=== PATIENT | female | born 1990 | race Caucasian/White ===

== ENCOUNTER 2017-09-27 16:28 | Emergency (ER) | payer MEDICAID ==
[2017-09-27] MEDS ORDERED: ONDANSETRON HCL INJ/PF 4 MG/2 ML SDV IV ONE (17:01)
[2017-09-27] MEDS ORDERED: NORMAL SALINE 1000 ML 1,000 ML IV ONE ×2 (17:01→20:29)
--- NOTE | 2017-09-27 17:02 | ER Document Report ---
ED Medical Screen (RME) - General Chief Complaint: Abdominal Pain Stated Complaint: ABDOMINAL PAIN Time Seen by Provider: 09/27/17 16:55 Information source: Patient, Parent - mother TRAVEL OUTSIDE OF THE [place] IN LAST 30 DAYS: No - HPI Notes: 09/27/17 17:03 27-year-old female 25 weeks 2 para 1, presents emergency department with pain in urination, abdominal pain, vomiting. She states she has been sick since Friday originally she thought it was food poisoning. She states however she is not getting any better. She did call her PHOTOGRAPHIC PRESS SCREWMAKER and they thought she may have the flu so they told her not to come in the office. Patient states she has not been able to keep anything down the last 2 days. She has a history of depression she is on Effexor however she has not taken it in a few days because she is afraid on her make her vomit. She has felt the baby move today. No vaginal bleeding or abnormal vaginal discharge. 09/27/17 17:03 - Related Data Allergies/Adverse Reactions: No Known Allergies Allergy (Verified 09/27/17 16:32) Past Medical History - Social History Chew tobacco use (# tins/day): No Frequency of alcohol use: None Drug Abuse: None Renal/ Medical History: Denies: Hx Peritoneal Dialysis GI Medical History: Reports: Hx Gastroesophageal Reflux Disease - w/preg Psychiatric Medical History: Reports: Hx Depression Physical Exam - Vital signs Vitals: Temp Pulse Resp BP Pulse Ox 98.1 F 117 H 16 128/66 H 98 09/27/17 16:40 09/27/17 16:40 09/27/17 16:40 09/27/17 16:40 09/27/17 16:40 Course - Vital Signs Vital signs: Temp Pulse Resp BP Pulse Ox 98.1 F 117 H 16 128/66 H 98 09/27/17 16:40 09/27/17 16:40 09/27/17 16:40 09/27/17 16:40 09/27/17 16:40
[2017-09-27 17:21] LABS: ABSOLUTE LYMPHOCYTES (AUTO) 1.3 10^3/uL (0.5-4.7); ABSOLUTE MONOCYTES (AUTO) 0.9 10^3/uL (0.1-1.4); ABSOLUTE NEUT (AUTO) 11.3 10^3/uL (1.7-8.2); BASOPHILS % (AUTO) 0.2 % (0-2); EOSINOPHILS % (AUTO) 0.1 % (0-6); HEMATOCRIT 39.7 % (36.0-47.0); HEMOGLOBIN 13.6 g/dL (12.0-15.5); LYMPHOCYTES % (AUTO) 9.4 % (13-45); MEAN CORPUSCULAR HEMOGLOBIN 28.7 pg (27.0-33.4); MEAN CORPUSCULAR HGB CONC 34.1 g/dL (32.0-36.0); MEAN CORPUSCULAR VOLUME 84 fl (80-97); MONOCYTES % (AUTO) 6.4 % (3-13); PLATELET COUNT 291 10^3/uL (150-450); RED BLOOD COUNT 4.73 10^6/uL (3.72-5.28); RED CELL DISTRIBUTION WIDTH 13.5 % (11.5-14.0); SEGMENTED NEUTROPHILS % (AUTO) 83.9 % (42-78); TOTAL CELLS COUNTED % (AUTO) 100 %; WHITE BLOOD COUNT 13.4 10^3/uL (4.0-10.5)
[2017-09-27 17:27] LABS: APPEARANCE,URINE SLIGHTLY-CLOUDY; BILIRUBIN,URINE NEGATIVE (NEGATIVE); COLOR,URINE YELLOW; GLUCOSE, URINE NEGATIVE (NEGATIVE); KETONES,URINE 80 mg/dL (NEGATIVE); LEUKOCYTE ESTERASE,URINE NEGATIVE (NEGATIVE); NITRITE,URINE NEGATIVE (NEGATIVE); PROTEIN,URINE 30 mg/dL (NEGATIVE); URINE SPECIFIC GRAVITY 1.029
[2017-09-27 19:41] LABS: ALANINE AMINOTRANSFERASE 23 U/L (9-52); ALBUMIN 2.8 g/dL (3.5-5.0); ALKALINE PHOSPHATASE 63 U/L (38-126); ANION GAP 7 (5-19); ASPARTATE AMINO TRANSFERASE 19 U/L (14-36); BILIRUBIN,DIRECT 0.3 mg/dL (0.0-0.4); BILIRUBIN,TOTAL 0.4 mg/dL (0.2-1.3); BLOOD UREA NITROGEN 10 mg/dL (7-20); CALCIUM 8.2 mg/dL (8.4-10.2); CARBON DIOXIDE 23 mmol/L (22-30); CHLORIDE 107 mmol/L (98-107); GLUCOSE 77 mg/dL (75-110); POTASSIUM 3.6 mmol/L (3.6-5.0); SODIUM 136.6 mmol/L (137-145); TOTAL PROTEIN 5.3 g/dL (6.3-8.2)
[2017-09-27] MEDS ORDERED: FAMOTIDINE 20 MG TABLET PO ONE (20:09)
[2017-09-27] MEDS ORDERED: METOCLOPRAMIDE HCL ORAL SOLN 10 MG/10 ML UDCUP PO ONE (20:10)
[2017-09-27] MEDS ORDERED: LIDOCAINE 2% VISCOUS SOLN 20 ML UDCUP PO ONE (20:10)
--- NOTE | 2017-09-27 20:27 | ER Document Report ---
ED General - General Chief Complaint: Abdominal Pain Stated Complaint: ABDOMINAL PAIN Time Seen by Provider: 09/27/17 16:55 Notes: Patient is a 27-year-old female currently 25 weeks who presents with 24 hours of intermittent epigastric abdominal pain and vomiting. No surgical history. No chronic medical problems other than depression. Describes the pain as a severe, stabbing, intermittent pain that is prompted by eating and then spontaneously resolves. She notes associated vomiting when she tries to eat. She has been trying the nausea medications that have been prescribed by her TENNIS COACH without improvement of her symptoms. She notes a history of gastroesophageal reflux but denies ever having symptoms to this degree of severity. She denies any vaginal bleeding, vaginal discharge, or lower abdominal pain. Continues to feel active movement. She notes that she had one episode of urination today and that the urine was "thick" and was very painful when past. She denies any flank tenderness. She has not had a recorded fever at home. TRAVEL OUTSIDE OF THE [place] IN LAST 30 DAYS: No - Related Data Allergies/Adverse Reactions: No Known Allergies Allergy (Verified 09/27/17 16:32) Past Medical History - General Information source: Patient, Parent - mother - Social History Smoking Status: Never Smoker Chew tobacco use (# tins/day): No Frequency of alcohol use: None Drug Abuse: None Lives with: Spouse/Significant other Family History: Reviewed & Not Pertinent Patient has suicidal ideation: No Patient has homicidal ideation: No Renal/ Medical History: Denies: Hx Peritoneal Dialysis GI Medical History: Reports: Hx Gastroesophageal Reflux Disease - w/preg Psychiatric Medical History: Reports: Hx Depression Review of Systems - Review of Systems Notes: Constitutional: Negative for fever. HENT: Negative for sore throat. Eyes: Negative for visual changes. Cardiovascular: Negative for chest pain. Respiratory: Negative for shortness of breath. Gastrointestinal: Positive for abdominal pain and vomiting Genitourinary: Positive for dysuria. Musculoskeletal: Negative for back pain. Skin: Negative for rash. Neurological: Negative for headaches, weakness or numbness. 10 point ROS negative except as marked above and in HPI. Physical Exam - Vital signs Vitals: Temp Pulse Resp BP Pulse Ox 98.1 F 117 H 16 128/66 H 98 09/27/17 16:40 09/27/17 16:40 09/27/17 16:40 09/27/17 16:40 09/27/17 16:40 Interpretation: Tachycardic Notes: PHYSICAL EXAMINATION: GENERAL: Well-appearing, well-nourished and in no acute distress. HEAD: Atraumatic, normocephalic. EYES: Pupils equal round and reactive to light, extraocular movements intact, sclera anicteric, conjunctiva are normal. ENT: nares patent, oropharynx clear without exudates. Moderately dry mucous membranes. NECK: Normal range of motion, supple without lymphadenopathy LUNGS: Breath sounds clear to auscultation bilaterally and equal. No wheezes rales or rhonchi. HEART: Regular tachycardia without murmurs ABDOMEN: Soft, gravid uterus, nontender, normoactive bowel sounds. No guarding , no rebound. No masses appreciated. EXTREMITIES: Normal range of motion, no pitting or edema. No cyanosis. NEUROLOGICAL: No focal neurological deficits. Moves all extremities spontaneously and on command. PSYCH: Normal mood, normal affect. SKIN: Warm, Dry, normal turgor, no rashes or lesions noted. Course - Re-evaluation Re-evalutation: 09/27/17 20:21 Presentation of an otherwise well-appearing 27-year-old female currently 25 weeks with upper abdominal pain with eating. On examination, patient denies any pain at this time. She has no localized abdominal tenderness on examination. No vaginal bleeding or discharge. Bedside ultrasound shows a viable intrauterine , appropriate cardiac activity and active movement. Patient does note one episode of dysuria but urinalysis is not consistent with an acute urinary tract infection. The patient does not have any focal right lower quadrant tenderness, rebound or guarding to suggest acute appendicitis. No right upper quadrant tenderness to suggest cholestasis of or an acute cholecystitis. Bedside ultrasound does not demonstrate any evidence of stones, wall thickening or pericholecystic fluid. LFTs are within normal limits. Suspect likely gastric irritation given clinical history and other diagnoses that are appear to be effectively excluded at this point. Patient has tolerated oral intake here in the emergency department without difficulty. Vitals are within normal limits. At this time will discharge with return precautions and follow-up recommendations. Verbal discharge instructions given a the bedside and opportunity for questions given. Medication warnings reviewed. Patient is in agreement with this plan and has verbalized understanding of return precautions and the need for primary care follow-up in the next 24-72 hours. - Vital Signs Vital signs: Temp Pulse Resp BP Pulse Ox 98.9 F 98 16 121/63 100 09/27/17 21:00 09/27/17 21:22 09/27/17 21:00 09/27/17 21:00 09/27/17 21:00 - Laboratory Result Diagrams: 09/27/17 17:15 09/27/17 19:00 Laboratory results interpreted by me: 09/27/17 09/27/17 09/27/17 17:15 17:15 19:00 WBC 13.4 H Seg Neutrophils % 83.9 H Lymphocytes % 9.4 L Absolute Neutrophils 11.3 H Sodium 136.6 L Creatinine 0.50 L Calcium 8.2 L Total Protein 5.3 L Albumin 2.8 L Urine Protein 30 H Urine Ketones 80 H Urine Urobilinogen 4.0 H Discharge - Discharge Clinical Impression: Epigastric abdominal pain Abdominal pain during Qualifiers: Trimester: second trimester Qualified Code(s): O26.892 - Other specified related conditions, second trimester Condition: Good Disposition: HOME, SELF-CARE Additional Instructions: Your symptoms appear to be most consistent with stomach or upper intestinal irritation. This is often worsened in the context of an advanced . Please begin taking famotidine 40 mg in the morning and 40 mg at night. This medicine can be purchased directly [id number]. You may also take medicine such as Tums to assist with your pain. Please return to emergency department immediately if you have worsening of your pain, shortness of breath, vomiting, become unable to exert yourself due to pain or difficulty breathing, you pass out, or have any pain that radiates into your arms, jaw, or back. Please also return if you have any additional symptoms that are concerning to you. Referrals: DARLEEN BHATT MD [Primary Care Provider] - Follow up as needed
[2017-09-27 21:11] VITALS: BP 121/63
== END 2017-09-27 21:35 | disposition home or self-care (01) ==
LOC: ER 16:28
DX: O26.892 Other specified pregnancy related conditions, second trimester (principal); R10.13 Epigastric pain; Z3A.25 25 weeks gestation of pregnancy
CPT/HCPCS: 99284; 96361; 96374; 36415; 87086; 85025; 80053; 81001; J3490 ×3; J2405; J7030

== ENCOUNTER 2017-12-18 17:13 | Inpatient (IN) | payer MEDICAID ==
[2017-12-18] MEDS ORDERED: RINGERS SOLUTION,LACTATED 1,000 ML IV ONE (17:21)
--- NOTE | 2017-12-18 17:40 | Admission Physical ---
Datetime Report Generated by CPN: 12/18/2017 17:39 CURRENT ADMISSION Hx Assessment: The History has been Reviewed and is Current Chief Complaint: Uterine Contractions; Suspected Ruptured Membranes Indication for Induction: Not Applicable Admit Impression : Term, Intrauterine ; Ruptured Membranes Admit Plan: Admit to Unit; Initiate Labor Protocol ALLERGIES Medication Allergies: No Known Allergies (09/27/2017) OBSTETRICAL HISTORY EDC: 01/05/2018 00:00 : 2 Para: 1 PHYSICAL EXAM General: Normal HEENT: Normal Neurologic: Deferred Thyroid: Normal Heart: Normal Lungs: Normal Breast: Normal Back: Normal Abdomen: Normal Genitourinary Exam: Normal Extremities: Normal DTRs: Normal Pelvic Type: Adequate Physical Exam Comments: 6 lbs 8 oz proven pelvis Vital Signs: Reviewed VAGINAL EXAM Dilatation: 1 Effacement: 30 Station: -4 Contraction Comments: 2-5 MEMBRANES Membranes: Ruptured Amniotic Fluid Color: Clear FETUS A EGA: 37.3 Monitoring: External US FHR- Baseline: 135 Variability: Moderate 6-25bpm Accelerations: 15X15 Decelerations: None FHR Category: Category I Estimated Weight (gm): 3200 Presentation: Vertex Admit Comment: c/o rupture of membranes, states about an hour ago, active baby, irregular mild ctx, denies bleeding; complicated by polyhdramnios. Hx abn pap with colpo/leep? Depression on lexapro Grossly ruptured GBS neg Pitocin prn Anticipate INFORMED CONSENT Assignment: Ava Grey MD Signature: with User ID: [email or web address] : with User ID: [email or web address]
[2017-12-18] MEDS ORDERED: ONDANSETRON HCL INJ/PF 4 MG/2 ML SDV IV ONE (17:47)
[2017-12-18] MEDS ORDERED: CITRIC ACID/SODIUM CITRATE ORAL SOLN 15 ML UDCUP PO ONE (17:47)
[2017-12-18 18:21] LABS: ABSOLUTE BASOPHILS # (AUTO) 0.1 10^3/uL (0.0-0.2); ABSOLUTE LYMPHOCYTES (AUTO) 2.6 10^3/uL (0.5-4.7); ABSOLUTE MONOCYTES (AUTO) 1.3 10^3/uL (0.1-1.4); ABSOLUTE NEUT (AUTO) 10.6 10^3/uL (1.7-8.2); BASOPHILS % (AUTO) 0.5 % (0-2); EOSINOPHILS % (AUTO) 0.1 % (0-6); HEMATOCRIT 35.8 % (36.0-47.0); HEMOGLOBIN 11.7 g/dL (12.0-15.5); MEAN CORPUSCULAR HEMOGLOBIN 24.8 pg (27.0-33.4); MEAN CORPUSCULAR HGB CONC 32.6 g/dL (32.0-36.0); MEAN CORPUSCULAR VOLUME 76 fl (80-97); MONOCYTES % (AUTO) 8.7 % (3-13); PLATELET COUNT 196 10^3/uL (150-450); RED BLOOD COUNT 4.69 10^6/uL (3.72-5.28); RED CELL DISTRIBUTION WIDTH 18.3 % (11.5-14.0); SEGMENTED NEUTROPHILS % (AUTO) 72.7 % (42-78); TOTAL CELLS COUNTED % (AUTO) 100 %; WHITE BLOOD COUNT 14.6 10^3/uL (4.0-10.5)
[2017-12-18] MEDS ORDERED: CITRIC ACID/SODIUM CITRATE ORAL SOLN 15 ML UDCUP ONE (18:26)
[2017-12-18 18:46] LABS: ALANINE AMINOTRANSFERASE 21 U/L (9-52); ALBUMIN 2.7 g/dL (3.5-5.0); ALKALINE PHOSPHATASE 143 U/L (38-126); ANION GAP 11 (5-19); ASPARTATE AMINO TRANSFERASE 18 U/L (14-36); BLOOD UREA NITROGEN 14 mg/dL (7-20); CARBON DIOXIDE 21 mmol/L (22-30); CHLORIDE 107 mmol/L (98-107); GLUCOSE 107 mg/dL (75-110); LDH 423 U/L (313-618); POTASSIUM 4.2 mmol/L (3.6-5.0); SODIUM 138.7 mmol/L (137-145); TOTAL PROTEIN 5.5 g/dL (6.3-8.2); URIC ACID 5.6 mg/dL (2.5-6.2)
[2017-12-18 19:15] LABS: BILIRUBIN,TOTAL < 0.1 mg/dL (0.2-1.3); RUBELLA INTERPRETATION POSITIVE
[2017-12-18] MEDS ORDERED: MISOPROSTOL 0.2 MG TABLET ONE (23:13)
[2017-12-18] MEDS ORDERED: OXYTOCIN/NORMAL SALINE 20 UNIT/1,000 ML RTUINJ ONE (23:13)
[2017-12-18] MEDS ORDERED: LIDOCAINE 1% INJ-PF (10 MG/ML) 30 ML SDV ONE (23:13)
[2017-12-18] MEDS: OXYTOCIN/NORMAL SALINE 20 UNIT/1,000 ML RTUINJ IV PRN (23:24)
--- NOTE | 2017-12-19 00:34 | L&D Progress Notes ---
PROGRESS NOTES Datetime Report Generated by CPN: 12/19/2017 00:34 PROGRESS NOTE Impression: Reassuring Heart Rate Procedures: Sterile Vag Exam Plan: Continue Present Management; Induction Informed Consent Obtained: Vaginal Delivery; Induction of Labor; Risks, Benefits and Alternatives Discussed Vital Signs : Reviewed Comment: Pt admitted for PROM. Initially refused pitocin. We reviewed with patient that need to get labor initiated and with polyhydramnios that ctx may not initiate on own. Pt is only rarely alex. She refuses the Cooks catheter. Pitocin initiated. Pt desires to remain mobile. VAGINAL EXAM Dilatation: 1 Effacement: 30 Station: -4 Contractions: 2-5 MEMBRANES Membranes: Ruptured Amniotic Fluid Color: Clear FETUS A FHR - Baseline: 125 Monitoring: External US Variability: Moderate 6-25bpm Accelerations: 15X15 Decelerations: None Estimated Weight (gm): 3200 Presentation: Vertex SIGNATURE SIGNATURE: [id number] SIGNATURE: [id number] Signature: with User ID: [email or web address]
[2017-12-19] MEDS ORDERED: NALBUPHINE HCL INJ 10 MG/1 ML AMPULE ONE ×3 (03:26→15:34)
[2017-12-19] MEDS ORDERED: NALBUPHINE HCL INJ 10 MG/1 ML AMPULE INJ ONE ×2 (03:26→11:25)
--- NOTE | 2017-12-19 04:03 | L&D Progress Notes ---
PROGRESS NOTES Datetime Report Generated by CPN: 12/19/2017 04:03 PROGRESS NOTE Impression: Reassuring Heart Rate Impression: Reassuring Heart Rate Procedures: Sterile Vag Exam Plan: Continue Present Management; Induction; Cervical Ripening Plan: Induction; Cervical Ripening Informed Consent Obtained: Vaginal Delivery; Induction of Labor; Risks, Benefits and Alternatives Discussed Informed Consent Obtained: Vaginal Delivery; Induction of Labor; Risks, Benefits and Alternatives Discussed Vital Signs : Reviewed Vital Signs : Reviewed Comment: Long discussion with patient that now approaching 12 hours of membrane rupture and not in labor despite pitocin. Pt has been refusing Cooks catheter until this point. Pt still afebrile and no tachycardia. Reviewed risks of section if not in labor and after 18 hours ruptured and reviewed risks of chorioamnionitis to baby and mom. Reviewed recommendations again re: cooks catheter and benefits of cooks catheter. She desires to proceed with cooks at this time. Nubain given and Cooks catheter placed. VAGINAL EXAM Dilatation: 2 Effacement: 75 Station: -1 Contractions: q 2-4 MEMBRANES Membranes: Ruptured Amniotic Fluid Color: Clear FETUS A FHR - Baseline: 125 Monitoring: External US Variability: Moderate 6-25bpm Decelerations: None FHR Category: Category I FETUS C SIGNATURE: [id number] Signature: with User ID: [email or web address]
[2017-12-19] MEDS ORDERED: ESCITALOPRAM OXALATE 10 MG TABLET PO SCH (05:00)
[2017-12-19] MEDS ORDERED: ESCITALOPRAM OXALATE 10 MG TABLET PO ONE (05:00)
[2017-12-19] MEDS ORDERED: CITRIC ACID/SODIUM CITRATE ORAL SOLN 15 ML UDCUP ONE (05:10)
[2017-12-19] MEDS ORDERED: PROMETHAZINE HCL INJ 25 MG/1 ML VIAL ONE ×2 (11:05→15:34)
[2017-12-19] MEDS ORDERED: PROMETHAZINE HCL INJ 25 MG/1 ML VIAL IV ONE (11:25)
[2017-12-19] MEDS: OXYTOCIN/NORMAL SALINE 20 UNIT/1,000 ML RTUINJ IV PRN (16:09)
[2017-12-19] MEDS ORDERED: PROMETHAZINE HCL INJ 25 MG/1 ML VIAL IV PRN (16:21)
[2017-12-19] MEDS ORDERED: GLYCERIN/WITCH HAZEL LEAF 1 EACH MED..PAD TP PRN (16:21)
[2017-12-19] MEDS ORDERED: OXYTOCIN/NORMAL SALINE 20 UNIT/1,000 ML RTUINJ IV PRN (16:21)
[2017-12-19] MEDS ORDERED: MEASLES,MUMPS&RUBELLA VACC/PF 0.5 ML VIAL SUBCUT PRN (16:21)
[2017-12-19] MEDS ORDERED: BENZOCAINE/MENTHOL AEROSOL SPRAY 56 ML TOP PRN (16:21)
[2017-12-19] MEDS ORDERED: DIPHENHYDRAMINE HCL 25 MG CAPSULE PO PRN (16:21)
[2017-12-19] MEDS ORDERED: ACETAMINOPHEN WITH CODEINE #3 TABLET PO PRN ×2 (16:21)
[2017-12-19] MEDS ORDERED: PROMETHAZINE HCL 25 MG SUPP.RECT PR PRN (16:21)
[2017-12-19] MEDS ORDERED: ACETAMINOPHEN 650 MG SUPP.RECT PR PRN (16:21)
[2017-12-19] MEDS ORDERED: DIBUCAINE 1% OINTMENT 28 GM TP PRN (16:21)
[2017-12-19] MEDS ORDERED: DIPH/PERTUSS(ACELL)/TETANUS VAC/PF 0.5 ML SYR (>=10YO) IM PRN (16:21)
[2017-12-19] MEDS ORDERED: PSEUDOEPHEDRINE HCL 30 MG TABLET PO PRN (16:21)
[2017-12-19] MEDS ORDERED: MAGNESIUM HYDROXIDE SUSP 30 ML UDCUP PO PRN (16:21)
[2017-12-19] MEDS ORDERED: PROMETHAZINE HCL 25 MG TABLET PO PRN (16:21)
[2017-12-19] MEDS ORDERED: NA PHOS,M-B/NA PHOS,DI-BA (ADULT) 133 ML ENEMA PR PRN (16:21)
[2017-12-19] MEDS ORDERED: ZOLPIDEM TARTRATE 5 MG TABLET PO PRN (16:21)
--- NOTE | 2017-12-19 17:32 | Delivery Summary ---
Del Sum A-C Datetime Report Generated by CPN: 12/19/2017 17:31 DELIVERY PERSONNEL DELIVERY PERSONNEL: [id number] Delivery Doctor:: Hal Connelly MD Nurse Nurse Licensed Practical Certified:: Ronda Jason CNM Labor and Delivery Nurse:: Sam Pulido RNstructural engineering drafting officer Nurse:: RIANNA Zheng Nursery Nurse:: ANJALI Sena/DISCHARGE DOOR OPERATOR: Mary Metzger ST Additional Personnel: : RIANNA Gonzalez RN MATERNAL INFORMATION Delivery Anesthesia: Local Medications After Delivery: Pitocin Drip 20 Units/1000ml NSS Meds After Delivery Comment: nubain 10mg _ phenergan 12.5mg IV lidocaine 1% , for consuelo repair; Estimated Blood Loss (ml): 275 Maternal Complications: Premature Rupture of Membranes Provider Comments: Called to room 5 for delivery. Dilation complete, caput at 2+ station with vertex at 0-1+. Poor maternal effort with pushing. Decelerations in heart rate with pushing. Dr Connelly called to come in to assist with delivery. Kiwi vacuum assisted delivery with 2 pulls and 1 pop off, of male infant OA to MARYAM at 1520 and immediately placed on mother's abdomen where RNs began stimulation and drying infant. Spontaneous respirations with weak cry and reduced tone. Cord clamped x2 then cut by CNM to allow infant to be placed in warmer for continued resuscitative efforts. Placenta, membranes, and cord expelled at 1525, Nichols preseentation. Repair of tears as noted above under local anesthesia. Hemostasis achieved. FF at U-2. LABOR SUMMARY EDC: 01/05/2018 00:00 No. Babies in Womb: 1 Attempted: No Labor Anesthesia: None LABOR INFORMATION Reason for Induction: Not Applicable Complete Dilatation: 12/19/2017 14:35 Cervical Ripening Agents: Martin Balloon Oxytocin: Induction Group B Beta Strep: Negative Steroids Given: None Reason Steroids Not Administered: Not Applicable MEMBRANES Membranes Rupture Method: Spontaneous Rupture of Membranes: 12/18/2017 16:40 Length of Rupture (hr): 22.67 Amniotic Fluid Color: Clear Amniotic Fluid Amount: Small Amniotic Fluid Odor: Normal STAGES OF LABOR Stage 2 hr: 0 Stage 2 min: 45 Stage 3 hr: 0 Stage 3 min: 4 VAGINAL DELIVERY Episiotomy: None Laceration #1: Perineal Laceration Extension #1: First Degree Other Laceration: Labial Laceration Repair: Yes Laceration Repair Note: Repair of both tears with 3-0 Chromic using interrupted stitches Sponge Count Correct: N/A Sharps Count Correct: N/A CSECTION DELIVERY Primary Indication: N/A Secondary Indication: N/A CSection Incidence: N/A Labor: N/A Elective: N/A CSection Incision: N/A BABY A INFORMATION Infant Delivery Date/Time: 12/19/2017 15:20 Method of Delivery: Vaginal Born in Route : No : N/A Forceps: N/A Vacuum Extraction: Successful Shoulder Dystocia : No ASSISTED DELIVERY BABY A Station Vacuum/Forcep Apply: +3 Position Vacuum/Forcep Apply: Right Occipital Anterior Vacuum Number of Pulls: 2 Vacuum Number of PopOffs: 1 Reduce Pressure btwn Ctx: Yes Vacuum Police Booking Officer: Kiwi Total Time Vacuum Applied: 3 PRESENTATION/POSITION BABY A Presentation: Cephalic Cephalic Presentation: Vertex Vertex Position: Right Occipital Anterior Breech Presentation: N/A PLACENTA INFORMATION BABY A Placenta Delivery Time : 12/19/2017 15:24 Placenta Method of Delivery: Spontaneous Placenta Status: Delivered SCORES BABY A Heart Rate 1 min: >100 bpm Resp Effort 1 min: Good Cry Reflex Irritability 1 min: Cough or Sneeze or Pulls Away Muscle Tone 1 min: Flaccid Color 1 min: Body [place], Extremities Blue Resuscitation Effort 1 min: Tactile Stimulation; Oxygen; PPV/NCPAP SCORE 1 MIN: 7 Heart Rate 5 min: >100 bpm Resp Effort 5 min: Good Cry Reflex Irritability 5 min: Cough or Sneeze or Pulls Away Muscle Tone 5 min: Some Flexion of Extremities Color 5 min: Body [place], Extremities Blue Resuscitation Effort 5 min: N/A SCORE 5 MIN: 8 Resuscitation Effort 10 min: N/A INFANT INFORMATION BABY A Gestational Age at Delivery: 37.4 Gestational Status: Early Term- 37- 38.6 Weeks Infant Outcome : Liveborn Infant Condition : Stable Sex: Male IDENTIFICATION BABY A Verification Date/Time: 12/19/2017 15:20 ID Band Number: [id number] Mother's Name Verified: Yes Infant WEIGHT/LENGTH BABY A Infant Birthweight (gm): 3635 Weight (lb): 8 Weight (oz): 0 Infant Length (in): 21.00 Length (cm): 53.34 CORD INFORMATION BABY A No. Cord Vessels: 3 Nuchal Cord : N/A Cord Blood Taken: Yes-For Storage (Mom's Blood type +) Suction: Mouth; Nose ASSESSMENT BABY A Infant Complications: Extended Bradycardia; Multiple Variable Decels Skin to Skin: Yes Care By: Maksim Quintanilla RNC Transferred To: Nursery BABY B INFORMATION : N/A SIGNATURES Assignment: Hal Connelly MD Signature: with User ID: [email or web address] : with User ID: [email or web address] : I personally evaluated and examined the patient in conjunction with the MLP and agree with the assessment, treatment plan and disposition.
[2017-12-19] MEDS ORDERED: MISOPROSTOL 0.2 MG TABLET ONE (19:20)
[2017-12-19] MEDS ORDERED: TRANEXAMIC ACID INJ/PF 1,000 MG/10 ML SDV IV ONE ×3 (20:00→22:00)
[2017-12-19] MEDS ORDERED: MISOPROSTOL 0.1 MG TABLET PR ONE (20:00)
[2017-12-19 20:36] LABS: HEMATOCRIT 29.3 % (36.0-47.0); MEAN CORPUSCULAR HEMOGLOBIN 25.1 pg (27.0-33.4); MEAN CORPUSCULAR HGB CONC 32.5 g/dL (32.0-36.0); MEAN CORPUSCULAR VOLUME 77 fl (80-97); PLATELET COUNT 161 10^3/uL (150-450); RED CELL DISTRIBUTION WIDTH 18.5 % (11.5-14.0); WHITE BLOOD COUNT 21.8 10^3/uL (4.0-10.5)
[2017-12-19 20:37] LABS: HEMOGLOBIN 9.5 g/dL (12.0-15.5)
[2017-12-19] MEDS: FAMOTIDINE 20 MG TABLET PO SCH (21:18)
[2017-12-19] MEDS: ESCITALOPRAM OXALATE 10 MG TABLET PO SCH (21:18)
[2017-12-19] MEDS ORDERED: RINGERS SOLUTION,LACTATED 1,000 ML IV PRN (21:43)
[2017-12-19] MEDS: FERROUS SULFATE 325 MG TABLET PO SCH (23:26)
[2017-12-19] MEDS: DOCUSATE SODIUM 100 MG CAPSULE PO SCH (23:26)
[2017-12-19] MEDS: IBUPROFEN 800 MG TABLET PO SCH (23:26)
[2017-12-20 02:15] LABS: HEMATOCRIT 23.1 % (36.0-47.0); MEAN CORPUSCULAR HEMOGLOBIN 24.9 pg (27.0-33.4); MEAN CORPUSCULAR HGB CONC 32.1 g/dL (32.0-36.0); MEAN CORPUSCULAR VOLUME 78 fl (80-97); PLATELET COUNT 140 10^3/uL (150-450); RED BLOOD COUNT 2.97 10^6/uL (3.72-5.28); RED CELL DISTRIBUTION WIDTH 18.8 % (11.5-14.0); WHITE BLOOD COUNT 18.5 10^3/uL (4.0-10.5)
[2017-12-20 02:24] LABS: HEMOGLOBIN 7.4 g/dL (12.0-15.5)
[2017-12-20 06:54] LABS: MEAN CORPUSCULAR HEMOGLOBIN 25.1 pg (27.0-33.4); MEAN CORPUSCULAR HGB CONC 32.6 g/dL (32.0-36.0); MEAN CORPUSCULAR VOLUME 77 fl (80-97); PLATELET COUNT 138 10^3/uL (150-450); RED BLOOD COUNT 2.85 10^6/uL (3.72-5.28); RED CELL DISTRIBUTION WIDTH 18.8 % (11.5-14.0); WHITE BLOOD COUNT 17.3 10^3/uL (4.0-10.5)
[2017-12-20 07:00] LABS: HEMOGLOBIN 7.2 g/dL (12.0-15.5)
[2017-12-20] MEDS ORDERED: TRANEXAMIC ACID INJ/PF 1,000 MG/10 ML SDV IV ONE (08:45)
[2017-12-20] MEDS: IBUPROFEN 800 MG TABLET PO SCH ×3 (09:13→22:16)
[2017-12-20] MEDS ORDERED: ESCITALOPRAM OXALATE 10 MG TABLET PO SCH (10:00)
[2017-12-20] MEDS ORDERED: ACETAMINOPHEN 325 MG TABLET ONE (10:08)
[2017-12-20] MEDS: FERROUS SULFATE 325 MG TABLET PO SCH ×2 (10:14→17:26)
[2017-12-20] MEDS: SENNOSIDES/DOCUSATE 8.6-50 MG 1 EACH TABLET PO SCH (10:15)
[2017-12-20] MEDS: PRENATAL VITAMIN W DHA CAPSULE PO SCH (10:15)
[2017-12-20] MEDS: FAMOTIDINE 20 MG TABLET PO SCH ×2 (10:15→22:15)
[2017-12-20] MEDS: DOCUSATE SODIUM 100 MG CAPSULE PO SCH ×2 (10:15→17:26)
[2017-12-20] MEDS ORDERED: ACETAMINOPHEN 325 MG TABLET PO PRN (10:36)
--- NOTE | 2017-12-20 11:52 | PDOC PROGRESS REPORT ---
Subjective-OB Progress Note for:: 12/20/17 Physical Exam (OB) Vital Signs: Temp Pulse Resp BP Pulse Ox 98.2 F 90 16 127/87 H 97 12/20/17 08:16 12/20/17 08:16 12/20/17 08:16 12/20/17 08:16 12/20/17 08:16 Intake & Output 12/19/17 12/20/17 12/21/17 06:59 06:59 06:59 Output Total 1300 Balance -1300 Weight 87.815 kg - Lochia Lochia Amount: Small 10-25 ml Lochia Color: Rubra/Red - Abdomen Description: Soft Hernia Present: No Bowel Sounds: Normoactive Flatus Presence: Present Stool: No Fundal Description: Firm, Midline Fundal Height: u/u - u/2 Objective-Diagnostic Laboratory: 12/20/17 06:23 12/18/17 18:03 12/19/17 12/20/17 12/20/17 20:24 01:40 06:23 WBC 21.8 H 18.5 H 17.3 H RBC 3.80 2.97 L 2.85 L Hgb 9.5 L D 7.4 L D 7.2 L Hct 29.3 L 23.1 L 22.0 L MCV 77 L 78 L 77 L MCH 25.1 L 24.9 L 25.1 L MCHC 32.5 32.1 32.6 RDW 18.5 H 18.8 H 18.8 H Plt Count 161 140 L 138 L
[2017-12-20] MEDS: ESCITALOPRAM OXALATE 10 MG TABLET PO SCH (22:15)
[2017-12-21] MEDS: IBUPROFEN 800 MG TABLET PO SCH ×3 (06:43→22:34)
[2017-12-21] MEDS: SENNOSIDES/DOCUSATE 8.6-50 MG 1 EACH TABLET PO SCH (09:14)
[2017-12-21] MEDS: FAMOTIDINE 20 MG TABLET PO SCH ×2 (09:14→22:35)
[2017-12-21] MEDS: FERROUS SULFATE 325 MG TABLET PO SCH ×2 (09:14→17:39)
[2017-12-21] MEDS: DOCUSATE SODIUM 100 MG CAPSULE PO SCH ×2 (09:15→17:39)
[2017-12-21] MEDS: PRENATAL VITAMIN W DHA CAPSULE PO SCH (09:15)
--- NOTE | 2017-12-21 10:00 | PDOC PROGRESS REPORT ---
Subjective-OB Progress Note for:: 12/21/17 Physical Exam (OB) Vital Signs: Temp Pulse Resp BP Pulse Ox 97.7 F 93 16 116/82 100 12/21/17 07:27 12/21/17 07:27 12/21/17 07:27 12/21/17 07:27 12/21/17 07:27 Intake & Output 12/20/17 12/21/17 12/22/17 06:59 06:59 06:59 Intake Total 700 Output Total 1300 1300 Balance -1300 -600 - Lochia Lochia Amount: Scant < 10 ml Lochia Color: Rubra/Red - Abdomen Description: Tender, Soft, Round Hernia Present: No Bowel Sounds: Normoactive Flatus Presence: Present Stool: No Fundal Description: Firm, Midline Fundal Height: u/u - u/2 Objective-Diagnostic Laboratory: 12/20/17 06:23 12/18/17 18:03
[2017-12-21] MEDS: ESCITALOPRAM OXALATE 10 MG TABLET PO SCH (22:35)
[2017-12-22] MEDS: IBUPROFEN 800 MG TABLET PO SCH (06:39)
[2017-12-22 08:28] VITALS: BP 128/88
--- NOTE | 2017-12-22 09:08 | PDOC DISCHARGE SUMMARY ---
Final Diagnosis Discharge Date: 12/22/17 - Final Diagnosis (1) History of depression Is this a current diagnosis for this admission?: Yes (2) Jatinder sandoval Is this a current diagnosis for this admission?: Yes (3) Polyhydramnios Is this a current diagnosis for this admission?: Yes (4) hemorrhage, condition Is this a current diagnosis for this admission?: Yes (5) Is this a current diagnosis for this admission?: Yes (6) Premature rupture of membranes Is this a current diagnosis for this admission?: Yes (7) Vaginal delivery Is this a current diagnosis for this admission?: Yes Discharge Data - Discharge Medication Prescriptions: Escitalopram Oxalate [Lexapro 10 mg Tablet] 10 mg PO QHS #30 tablet Docusate Sodium [Colace 100 mg Capsule] 100 mg PO BID #60 capsule Ferrous Sulfate [Feosol 325 mg Tablet] 325 mg PO BID #60 tablet Ibuprofen [Motrin 800 mg Tablet] 800 mg PO Q8 #60 tablet Home Medications: Pnv W-O Ca No5/Fe Fumarate/FA [-U Multiple Vitamin Capsule] 1 cap PO DAILY 05/03/13 Docusate Sodium [Colace 100 mg Capsule] 100 mg PO BID #60 capsule 12/22/17 Escitalopram Oxalate [Lexapro 10 mg Tablet] 10 mg PO QHS #30 tablet 12/22/17 Ferrous Sulfate [Feosol 325 mg Tablet] 325 mg PO BID #60 tablet 12/22/17 Ibuprofen [Motrin 800 mg Tablet] 800 mg PO Q8 #60 tablet 12/22/17 Gestational Age: 37.4 Reason(s) for Admission: Onset of Labor Procedures: NST Intrapartum Procedure(s): Spontaneous Vaginal Delivery Complication(s): Laceration-Perineal, Laceration-Labial Laceration-Degree: 1st - Data Baby 1 Male at 1 minute: 7 at 5 minutes: 8 Weight: 3635 kg Home with Mother: No - bililights Complications: Yes - broken clavical, vacuum delivery, - Diagnosis Test Laboratory: Temp Pulse Resp BP Pulse Ox 98.5 F 105 H 17 128/88 H 100 12/22/17 08:11 12/22/17 08:11 12/22/17 08:11 12/22/17 08:11 12/22/17 08:11 12/18/17 12/19/17 12/20/17 18:03 20:24 01:40 RBC 4.69 3.80 2.97 L Hgb 11.7 L 9.5 L D 7.4 L D Hct 35.8 L 29.3 L 23.1 L 12/20/17 06:23 RBC 2.85 L Hgb 7.2 L Hct 22.0 L - Discharge information/Instructions Discharge Activity: Activity As Tolerated, Pelvic Rest, No tub bath Discharge Diet: Regular Disposition: HOME, SELF-CARE Follow up with: [facility] in: 4, Weeks
[2017-12-22] MEDS: DOCUSATE SODIUM 100 MG CAPSULE PO SCH (10:12)
[2017-12-22] MEDS: SENNOSIDES/DOCUSATE 8.6-50 MG 1 EACH TABLET PO SCH (10:12)
[2017-12-22] MEDS: PRENATAL VITAMIN W DHA CAPSULE PO SCH (10:13)
[2017-12-22] MEDS: FAMOTIDINE 20 MG TABLET PO SCH (10:13)
[2017-12-22] MEDS: FERROUS SULFATE 325 MG TABLET PO SCH (10:13)
== END 2017-12-22 12:00 | disposition home or self-care (01) | DRG 774 ==
LOC: LC 17:13 → LR 17:44 → 2S 12-19 18:21
PROVIDERS: ADMIT Obstetrics & Gynecology Gynecology; ATTEND Obstetrics & Gynecology Gynecology
PROC: 10D07Z6 Extraction of Products of Conception, Vacuum, Via Natural or Artificial Opening (ICD-10-PCS; principal; 2017-12-19)
PROC: 0HQ9XZZ Repair Perineum Skin, External Approach (ICD-10-PCS; 2017-12-19)
PROC: 0UQMXZZ Repair Vulva, External Approach (ICD-10-PCS; 2017-12-19)
DX: O42.02 Full-term premature rupture of membranes, onset of labor within 24 hours of rupture (principal); O72.1 Other immediate postpartum hemorrhage; O99.344 Other mental disorders complicating childbirth; F32.9 Major depressive disorder, single episode, unspecified; O40.3XX0 Polyhydramnios, third trimester, not applicable or unspecified; O76 Abnormality in fetal heart rate and rhythm complicating labor and delivery; O70.0 First degree perineal laceration during delivery; Z3A.37 37 weeks gestation of pregnancy; Z37.0 Single live birth
CPT/HCPCS: 36415; 59025; 80053; 83615; 84550; 85025; 85027; 86592; 86762; 86850; 86900; 86901; 88307; 94760; C1726; J2300; J2550; J2590; J3490

== ENCOUNTER 2018-02-18 05:41 | Day surgery (SDC) | payer MEDICAID ==
[2018-02-17 12:15] LABS: HEMATOCRIT 33.7 % (36.0-47.0); HEMOGLOBIN 10.8 g/dL (12.0-15.5); MEAN CORPUSCULAR HGB CONC 32.2 g/dL (32.0-36.0); MEAN CORPUSCULAR VOLUME 72 fl (80-97); PLATELET COUNT 338 10^3/uL (150-450); RED BLOOD COUNT 4.71 10^6/uL (3.72-5.28); RED CELL DISTRIBUTION WIDTH 19.8 % (11.5-14.0); WHITE BLOOD COUNT 8.8 10^3/uL (4.0-10.5)
[2018-02-17 12:19] LABS: APPEARANCE,URINE CLEAR; BILIRUBIN,URINE NEGATIVE (NEGATIVE); COLOR,URINE STRAW; GLUCOSE, URINE NEGATIVE (NEGATIVE); KETONES,URINE NEGATIVE (NEGATIVE); LEUKOCYTE ESTERASE,URINE NEGATIVE (NEGATIVE); NITRITE,URINE NEGATIVE (NEGATIVE); PROTEIN,URINE NEGATIVE (NEGATIVE); URINE SPECIFIC GRAVITY 1.015; UROBILINOGEN,URINE NEGATIVE mg/dL (<2.0)
[~2018-02-18 05:41] MED LIST: LACTATED RINGERS 1000 ML IV PRN; LIDOCAINE 0.5% INJ-PF (5 MG/ML) 50 ML SDV SUBCUT PRN
[2018-02-18] MEDS ORDERED: MORPHINE SULFATE 10 MG/ML INJ ONE (06:58)
[2018-02-18] MEDS ORDERED: PROPOFOL INJ 200 MG/20 ML VIAL IV ONE (06:58)
[2018-02-18] MEDS ORDERED: MIDAZOLAM 2 MG/2 ML INJ ONE ×2 (06:58→07:09)
[2018-02-18] MEDS ORDERED: EPHEDRINE SULFATE INJ 50 MG/1 ML AMPULE ONE (06:58)
[2018-02-18] MEDS ORDERED: FAMOTIDINE INJ/PF 20 MG/2 ML SDV IV ONE (07:09)
[2018-02-18] MEDS ORDERED: SCOPOLAMINE HYDROBROMIDE 1.5 MG PATCH.TD72 ONE (07:09)
[2018-02-18] MEDS ORDERED: FENTANYL CITRATE INJ/PF 100 MCG/2 ML AMPUL IV PRN ×3 (07:57)
[2018-02-18] MEDS ORDERED: DIPHENHYDRAMINE HCL 50 MG/ML VIAL IV PRN (07:57)
[2018-02-18] MEDS ORDERED: MEPERIDINE HCL/PF INJ 25 MG/1 ML DISP.SYRIN IV PRN (07:57)
[2018-02-18] MEDS ORDERED: ONDANSETRON HCL INJ/PF 4 MG/2 ML SDV IV PRN (07:57)
[2018-02-18] MEDS ORDERED: OXYCODONE-ACETAMINOPHEN 5-325 MG TABLET PO PRN ×3 (07:57→08:52)
--- NOTE | 2018-02-18 08:26 | Operative Report ---
Operative Report DATE OF SURGERY: 02/18/18 PREOPERATIVE DIAGNOSIS: Patient desires tubal ligation POSTOPERATIVE DIAGNOSIS: Same OPERATION: Bilateral laparoscopic Filshie clip application SURGEON: DORINA MONTES ANESTHESIA: GA TISSUE REMOVED OR ALTERED: Fallopian tubes COMPLICATIONS: None ESTIMATED BLOOD LOSS: 5 cc INTRAOPERATIVE FINDINGS: Normal uterus tubes and ovaries PROCEDURE: Patient was taken the OR and placed in supine position. General anesthesia was induced. She is placed in dorsolithotomy position using Loi stirrups. Her abdomen perineum and vagina were prepared and draped in sterile fashion. A sponge stick was placed in the vagina for manipulation the uterus. She had previously voided and in and out cath was not done. Incision was made the umbilicus and natural umbilical defect identified and dilated with Sweetie clamp. This allowed the placement of a blunt port. Laparoscopy confirmed appropriate placement. The abdomen was insufflated with CO2 gas. View of the pelvis was good. Each fallopian tube was identified and followed out to its fimbriated end and a Filshie clip was placed at the mid isthmic portion of each tube. Photos were taken. The scope was with removed with the port. The fascia at the umbilicus was closed with a 2-0 Vicryl stitch and skin closed with a 4-0 undyed Vicryl stitch. All instruments were removed from the vagina. She is placed back in supine position extubated and taken recovery room in stable condition.
[2018-02-18] MEDS ORDERED: KETOROLAC TROMETHAMINE INJ/PF 30 MG/1 ML SDV ONE (08:33)
[2018-02-18] MEDS ORDERED: METOCLOPRAMIDE HCL INJ/PF 10 MG/2 ML SDV ONE (08:45)
[2018-02-18] MEDS: FENTANYL CITRATE INJ/PF 100 MCG/2 ML AMPUL ONE ×2 (09:00→09:10)
[2018-02-18 11:56] VITALS: BP 129/91
[2018-02-18] MEDS ORDERED: IBUPROFEN 800 MG TABLET PO PRN (12:00)
[2018-02-18] MEDS ORDERED: SUCCINYLCHOLINE CHLORIDE INJ 200 MG/10 ML VIAL ONE (15:02)
[2018-02-18] MEDS ORDERED: DEXAMETHASONE SOD PHOSPHATE INJ 4 MG/1 ML VIAL ONE (15:02)
[2018-02-18] MEDS ORDERED: LIDOCAINE 2% INJ-PF (20 MG/ML) 2 ML AMPUL ONE (15:02)
[2018-02-18] MEDS ORDERED: ONDANSETRON HCL INJ/PF 4 MG/2 ML SDV ONE (15:02)
== END 2018-02-18 10:55 | disposition home or self-care (01) ==
LOC: OROUT 05:41
PROVIDERS: ATTEND Obstetrics & Gynecology
DX: Z30.2 Encounter for sterilization (principal); K21.9 Gastro-esophageal reflux disease without esophagitis; F32.9 Major depressive disorder, single episode, unspecified; Z79.899 Other long term (current) drug therapy
CPT/HCPCS: 36415; 85027; 81005; 81025; 58671; J2250; J1100; J3010; J3490 ×2; J1885; J2765; J2270; J0330; J2405; J2704; S0028; 851

== ENCOUNTER → 2019-01-28 | Outpatient (CLI) | payer BC ==
--- NOTE | 2019-01-28 16:41 | RADIOLOGY REPORT (SQ) ---
EXAM DESCRIPTION: U/S NON-OB PELVIS TV W/O DOP COMPLETED DATE/TIME: 01/28/2019 4:26 pm REASON FOR STUDY: R10.2 PELVIC AND PERINEAL PAIN R10.2 PELVIC AND PERINEAL PAIN COMPARISON: None. TECHNIQUE: Dynamic and static grayscale images acquired of the pelvis via transvaginal approach and recorded on PACS. Additional selected color Doppler and spectral images recorded. LIMITATIONS: None. FINDINGS: UTERUS: Contour normal. No mass. ENDOMETRIAL STRIPE: Endometrial stripe is visualized and measures 1.1 cm. Scattered echogenic foci, possibly calcifications. CERVIX: 8 mm nabothian cyst. RIGHT OVARY AND DOPPLER: Normal size. No worrisome masses. Normal arterial vascular flow without evid ence for torsion. LEFT OVARY AND DOPPLER: Ovary not visualized. FREE FLUID: Small amount of free fluid within the cul-de-sac. OTHER: No other significant finding. MEASUREMENTS: UTERUS: 7.7 x 5.4 x 3.8 cm ENDOMETRIAL STRIPE: 1.1 cm RIGHT OVARY: 3.4 x 2.6 x 2.8 cm LEFT OVARY: Not visualized IMPRESSION: 1. Trace free fluid within the pelvis, likely physiologic. 2. Unremarkable right ovary. Left ovary not visualized. 3. Small nabothian cyst. 4. Otherwise, unremarkable pelvic ultrasound. TECHNICAL DOCUMENTATION: JOB ID: [id number]- All Rights Reserved Rev-01/09 Reading location - IP/workstation name: [email or web address]
== END ==
LOC: RAD 13:48
PROVIDERS: ATTEND Nurse Practitioner Family
DX: N88.8 Other specified noninflammatory disorders of cervix uteri (principal); R10.2 Pelvic and perineal pain
CPT/HCPCS: 76830

== ENCOUNTER 2020-03-20 13:36 | Emergency (ER) | payer BC ==
--- NOTE | 2020-03-20 14:58 | ER Document Report ---
ED Medical Screen (RME) - General Chief Complaint: Psych Problem Stated Complaint: ANXIETY Time Seen by Provider: 03/20/20 14:48 Primary Care Provider: SULTANA GARCIA MD [Primary Care Provider] - Follow up as needed Notes: Patient is a 29-year-old female who presents to the emergency department with suicidal and homicidal ideation. Patient states that she does not have a plan, but states, "my son is different and they cannot find out what is wrong with him." Patient states that her son is 2 years old and she feels overwhelmed with taking care of him. She also has a 6-year-old who she takes care of. She commented in triage, "I might hurt my children if I continue." Exam: Tearful. I have greeted and performed a rapid initial assessment of this patient. A comprehensive ED assessment and evaluation of the patient, analysis of test results and completion of medical decision making process will be conducted by an additional ED providers. TRAVEL OUTSIDE OF THE [place] IN LAST 30 DAYS: No - Related Data Allergies/Adverse Reactions: No Known Allergies Allergy (Verified 12/19/17 17:28) Past Medical History - Past Medical History Cardiac Medical History: Denies: Hx Coronary Artery Disease, Hx Heart Attack, Hx Hypertension Pulmonary Medical History: Reports: Hx Asthma, Hx Pneumonia Denies: Hx Bronchitis, Hx COPD Neurological Medical History: Denies: Hx Cerebrovascular Accident, Hx Seizures Renal/ Medical History: Denies: Hx Peritoneal Dialysis GI Medical History: Reports: Hx Gastroesophageal Reflux Disease - w/preg Musculoskeltal Medical History: Denies Hx Arthritis Psychiatric Medical History: Reports: Hx Depression - Immunizations Hx Diphtheria, Pertussis, Tetanus Vaccination: - unknown Doctor's Discharge - Discharge Referrals: SULTANA GARCIA MD [Primary Care Provider] - Follow up as needed
[2020-03-20] MEDS ORDERED: LORAZEPAM 1 MG TABLET PO ONE (15:44)
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
[2020-03-20 16:15] LABS: ABSOLUTE BASOPHILS # (AUTO) 0.1 10^3/uL (0.0-0.2); ABSOLUTE LYMPHOCYTES (AUTO) 2.7 10^3/uL (0.5-4.7); ABSOLUTE MONOCYTES (AUTO) 1.1 10^3/uL (0.1-1.4); ABSOLUTE NEUT (AUTO) 11.4 10^3/uL (1.7-8.2); BASOPHILS % (AUTO) 0.5 % (0-2); EOSINOPHILS % (AUTO) 0.2 % (0-6); HEMATOCRIT 45.2 % (36.0-47.0); HEMOGLOBIN 15.2 g/dL (12.0-15.5); LYMPHOCYTES % (AUTO) 17.9 % (13-45); MEAN CORPUSCULAR HEMOGLOBIN 29.6 pg (27.0-33.4); MEAN CORPUSCULAR HGB CONC 33.8 g/dL (32.0-36.0); MEAN CORPUSCULAR VOLUME 88 fl (80-97); PLATELET COUNT 276 10^3/uL (150-450); RED BLOOD COUNT 5.15 10^6/uL (3.72-5.28); RED CELL DISTRIBUTION WIDTH 12.8 % (11.5-14.0); SEGMENTED NEUTROPHILS % (AUTO) 74.4 % (42-78); TOTAL CELLS COUNTED % (AUTO) 100 %; WHITE BLOOD COUNT 15.3 10^3/uL (4.0-10.5)
[2020-03-20 16:16] LABS: APPEARANCE,URINE SLIGHTLY-CLOUDY; BILIRUBIN,URINE NEGATIVE (NEGATIVE); COLOR,URINE YELLOW; GLUCOSE, URINE NEGATIVE (NEGATIVE); KETONES,URINE 20 mg/dL (NEGATIVE); LEUKOCYTE ESTERASE,URINE SMALL (NEGATIVE); NITRITE,URINE NEGATIVE (NEGATIVE); PROTEIN,URINE 30 mg/dL (NEGATIVE); URINE SPECIFIC GRAVITY 1.023; UROBILINOGEN,URINE NEGATIVE mg/dL (<2.0)
[2020-03-20 16:28] LABS: URINE AMPHETAMINES SCREEN NEGATIVE; URINE BARBITURATES SCREEN NEGATIVE; URINE BENZODIAZEPINES SCREEN NEGATIVE; URINE COCAINE SCREEN NEGATIVE; URINE MARIJUANA (THC) SCREEN NEGATIVE; URINE METHADONE SCREEN NEGATIVE; URINE PHENCYCLIDINE SCREEN NEGATIVE
[2020-03-20 16:35] LABS: ACETAMINOPHEN < 10 ug/mL (10-30); ALBUMIN 4.7 g/dL (3.5-5.0); ALCOHOL < 10 mg/dL (NONE DETECTED); ALKALINE PHOSPHATASE 63 U/L (38-126); ANION GAP 7 (5-19); ASPARTATE AMINO TRANSFERASE 26 U/L (14-36); BILIRUBIN,TOTAL 0.5 mg/dL (0.2-1.3); BLOOD UREA NITROGEN 18 mg/dL (7-20); CALCIUM 9.5 mg/dL (8.4-10.2); CARBON DIOXIDE 26 mmol/L (22-30); CHLORIDE 106 mmol/L (98-107); GLUCOSE 89 mg/dL (75-110); POTASSIUM 3.9 mmol/L (3.6-5.0); SALICYLATE < 1.0 mg/dL (2.0-20.0); TOTAL PROTEIN 7.9 g/dL (6.3-8.2)
[2020-03-20] MEDS ORDERED: IBUPROFEN 600 MG TABLET PO ONE (17:07)
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
[2020-03-20] MEDS: OLANZAPINE 2.5 MG TABLET PO SCH (18:23)
--- NOTE | 2020-03-20 19:48 | EKG REPORT ---
SEVERITY:- NORMAL ECG - SINUS RHYTHM : Confirmed by: Sharmila Starks MD 20-Mar-2020 19:47:55
[2020-03-20] MEDS ORDERED: CLONIDINE HCL 0.1 MG TABLET PO SCH (22:00)
[2020-03-21] MEDS: OLANZAPINE 2.5 MG TABLET PO SCH (09:30)
[2020-03-21 15:10] VITALS: BP 127/82
== END 2020-03-21 15:11 | disposition home or self-care (01) ==
LOC: ER 13:36
DX: F41.9 Anxiety disorder, unspecified (principal); F32.9 Major depressive disorder, single episode, unspecified; R45.851 Suicidal ideations; R45.850 Homicidal ideations
CPT/HCPCS: 93005; 99285; 36415; 80307 ×4; 84703; 85025; 80053; 81001; 93010; J3490 ×2